=== PATIENT | female | born 1945 | race Caucasian/White ===

== ENCOUNTER 2020-05-28 10:03 | Outpatient (REF) | payer MEDICARE, SELFPAY ==
--- NOTE | 2020-05-28 10:09 | MM_ITS ---
EXAMINATION: BONE DENSITOMETRY CLINICAL INDICATION: Age-related osteoporosis without current pathological fracture. COMPARISON: Previous BD dated 09/13/2017 and baseline BD dated 08/04/2006. TECHNIQUE: Using a [employer] DXA System (software version: 13.1) manufactured by [employer], dual-energy x-ray absorptiometry was performed of the lumbar spine and left hip. The images are of good technical quality. Summary results are attached. FINDINGS: AP SPINE L1-L4: Current: BMD 0.777 g/cm2, Z-score -1.2, T-score -3.4, osteoporosis, 3.6% decrease from previous, 3.4% decrease from baseline (<5% change is not significant). Prior: BMD 0.806 g/cm2. Baseline: BMD 0.804 g/cm2. LEFT FEMUR, NECK: Current: BMD 0.621 g/cm2, Z-score -0.9, T-score -3.0, osteoporosis. Prior: BMD 0.662 g/cm2. Baseline: BMD 0.689 g/cm2. LEFT FEMUR, TOTAL: Current: BMD 0.702 g/cm2, Z-score -0.5, T-score -2.4, osteopenia, 1.7% increase from previous, 2.6% decrease from baseline (<5% change is not significant). Prior: BMD 0.690 g/cm2. Baseline: BMD 0.721 g/cm2. IDENTIFIED RISK FACTORS: Menopause, hysterectomy, bilateral oophorectomy, osteoporosis, height loss. HISTORY OF FRACTURE: None listed. MEDICATIONS: Calcium supplements or multivitamin, vitamin D, ERT/SERMS . MM/XR DEXA axial skeleton IMPRESSION: 1. DIAGNOSIS: Osteoporosis based on the lowest T-score value of -3.4 in the lumbar spine applying World Health Organization criteria. 2. 10-YEAR FRACTURE RISK PREDICTION, FRAX: Major osteoporotic fracture (clinical spine, forearm, hip or shoulder) 20.6%. Hip fracture 7.5%. 3. Treatment Recommendations: NOF guidelines recommend consideration for treatment in postmenopausal women and men age 50 and older presenting with the following: -A hip or vertebral (clinical or morphometric) fracture. -T-score less than or equal to -2.5 at the femoral neck or spine after appropriate evaluation to exclude secondary causes. -Low bone mass at the hip or spine and a 10-year fracture probability by FRAX of greater than or equal to 3% for hip fracture or greater than or equal to 20% for major osteoporotic fracture based on the [place] adapted WHO algorithm. 4. Other Recommendations: All treatment decisions require clinical judgment and consideration of individual patient factors, including patient preferences, comorbidities, previous drug use, risk factors not captured in the FRAX model (e.g. frailty, falls, vitamin D deficiency, increased bone turnover, interval significant decline in bone density) and possible under or overestimation of fracture risk by FRAX. Additional medical evaluation for secondary cause of low bone mineral density may be appropriate. FUTURE SCAN RECOMMENDATION: People with diagnosed cases of osteoporosis or at high risk for fracture should have regular bone mineral density tests. For patients eligible for Medicare, routine testing is allowed once every 2 years. The testing frequency can be increased to one year for patients who have rapidly progressing disease, those who are receiving or discontinuing medical therapy to restore bone mass, or have additional risk factors.
== END 2020-05-28 10:04 | disposition home or self-care (01) ==
LOC: HO.MAMMO 10:03
PROVIDERS: PCP Internal Medicine; Visit Provider Internal Medicine
DX: M81.0 Age-related osteoporosis without current pathological fracture (principal)
CPT/HCPCS: 77080

== ENCOUNTER 2020-10-01 10:18 | Outpatient (REF) | payer MEDICARE, SELFPAY ==
--- NOTE | ~2020-10-01 | MM_ITS ---
EXAMINATION: MM SCREENING DIGITAL BREAST TOMOSYNTHESIS, BILATERAL CLINICAL INFORMATION: Screening. Asymptomatic. The lifetime risk of breast cancer based on the Tyrer-Cuzick Model is 2.4%. COMPARISON: Mammography: June 18, 2019 and studies dating back to December 27, 2011 TECHNIQUE: Digital breast tomosynthesis is performed in both the craniocaudal and mediolateral oblique views along with computer-aided detection (CAD). Synthesized 2D images are generated from the tomosynthesis. FINDINGS: There are scattered areas of fibroglandular density (ACR BI-RADS breast composition Category b). There are no significant masses, abnormal calcifications, or other abnormalities. MM/MM tomosynthesis screening BI IMPRESSION: There are no significant changes from prior study. ASSESSMENT: BI-RADS 1: Negative RECOMMENDATION: Routine annual mammography screening. This patient's information was entered into a reminder system with a target due date for their next mammogram.
== END 2020-10-01 10:19 | disposition home or self-care (01) ==
LOC: HO.MAMMO 10:18
PROVIDERS: Visit Provider Internal Medicine
DX: Z12.31 Encounter for screening mammogram for malignant neoplasm of breast (principal)
CPT/HCPCS: 77063; 77067

== ENCOUNTER 2021-04-29 08:31 | Outpatient (REF) | payer MEDICARE, SELFPAY ==
[2021-04-29 11:32] LABS: MANUAL DIFF FLAG NO
[2021-04-29 11:41] LABS: Basophils Absolute Auto 0.1 X10*3/uL (0.0-0.2); Basophils Percent Auto 0.9 % (0-2); Eosinophils Absolute Auto 0.3 X10*3/uL (0.0-0.4); Eosinophils Percent Auto 4.7 % (0-4); Hematocrit 47.4 % (37.0-47.0); Hemoglobin 15.5 g/dl (12.0-16.0); Imm Gran Abs Auto 0.01 X10*3/uL (0.00-0.03); Imm Gran Pct Auto 0.2 % (0.0-0.4); Lymphocytes Absolute Auto 1.7 X10*3/uL (1.2-4.9); Lymphocytes Percent Auto 30.8 % (20-40); Mean Corpuscular HGB Conc 32.7 g/dl (31.0-35.0); Mean Corpuscular Volume 97.9 fL (80.0-98.0); Mean Platelet Volume 10.6 fL (9.4-12.3); Monocytes Absolute Auto 0.4 X10*3/uL (0.1-1.2); Monocytes Percent Auto 6.8 % (2-11); Neutrophils Absolute Auto 3.1 x10*3/uL (2.0-8.3); Neutrophils Percent Auto 56.6 % (45-73); Platelet Count 295 X10*3/uL (160-400); Red Blood Count 4.84 X10*6/uL (4.20-5.50); Red Cell Distribution Width 11.9 % (11.0-16.0); White Blood Count 5.5 X10*3/uL (4.8-10.8)
[2021-04-29 12:16] LABS: Alanine Aminotransferase 25 U/L (0-31); Albumin Level 4.4 g/dL (3.5-5.0); Alkaline Phosphatase 71 U/L (39-117); Anion Gap 12 (12-20); Aspartate Amino Transferase 23 U/L (5-31); Bilirubin Total 0.5 mg/dL (0.0-1.0); Blood Urea Nitrogen 11 mg/dL (9-16); Calcium 9.8 mg/dL (8.4-10.2); Carbon Dioxide 28 mmol/L (22-29); Chloride 105 mmol/L (96-108); Cholesterol 199 mg/dL; Estimated Glomerular Filt Rate > 60; Glucose Random 91 mg/dL (60-115); HDL Cholesterol 61 mg/dL; LDL Cholesterol Calculated 116 mg/dl; Potassium 4.2 mmol/L (3.3-5.1); Sodium 141 mmol/L (135-145); Total Protein 6.9 g/dL (6.5-8.0); Triglycerides 114 mg/dL
[2021-04-29 12:23] LABS: Free T4 (Free Thyroxine) 1.14 ng/dL (0.71-1.85); Thyroid Stimulating Hormone 1.42 uIU/mL (0.32-4.0); Vitamin D 25-OH Total 42.6 ng/mL (>30)
[2021-04-29 12:33] LABS: Folate 10.7 ng/mL (> or = 4.0); Vitamin B12 454 pg/mL (200-900)
== END 2021-04-29 08:32 | disposition home or self-care (01) ==
LOC: HO.HMGCLDS 08:31
PROVIDERS: PCP Internal Medicine; Visit Provider Internal Medicine
DX: M81.0 Age-related osteoporosis without current pathological fracture (principal); E78.00 Pure hypercholesterolemia, unspecified
CPT/HCPCS: 36415; 80053; 80061; 82306; 82607; 82746; 84439; 84443; 85025

== ENCOUNTER 2021-10-05 08:08 | Outpatient (REF) | payer MEDICARE, SELFPAY ==
--- NOTE | ~2021-10-05 | MM_ITS ---
EXAMINATION: MM SCREENING DIGITAL BREAST TOMOSYNTHESIS, BILATERAL CLINICAL INFORMATION: Screening. Asymptomatic. The lifetime risk of breast cancer based on the Tyrer-Cuzick Model is 2%. COMPARISON: Mammography: 10/01/2020, 06/18/2019, 06/14/2018, 06/07/2017 TECHNIQUE: Digital breast tomosynthesis is performed in both the craniocaudal and mediolateral oblique views along with computer-aided detection (CAD). Synthesized 2D images are generated from the tomosynthesis. FINDINGS: There are scattered areas of fibroglandular density (ACR BI-RADS breast composition Category b). There are no significant masses, abnormal calcifications, or other abnormalities. Parenchymal pattern is similar to prior studies is no developing density or interval architectural abnormality. There are scattered vascular and benign round and rim calcifications again seen. The axilla are unremarkable. Mild bilateral nipple retraction is a chronic finding. MM/MM tomosynthesis screening BI IMPRESSION: No significant changes from prior studies. ASSESSMENT: BI-RADS 2: Benign RECOMMENDATION: Routine annual mammography screening. This patient's information was entered into a reminder system with a target due date for their next mammogram.
== END 2021-10-05 08:09 | disposition home or self-care (01) ==
LOC: HO.MAMMO 08:08
PROVIDERS: PCP Internal Medicine; Visit Provider Internal Medicine
DX: Z12.31 Encounter for screening mammogram for malignant neoplasm of breast (principal)
CPT/HCPCS: 77063; 77067

== ENCOUNTER 2022-06-01 09:06 | Outpatient (REF) | payer MEDICARE, SELFPAY ==
--- NOTE | ~2022-06-01 | MM_ITS ---
EXAMINATION: BONE DENSITOMETRY CLINICAL INDICATION: Menopause. COMPARISON: Previous BD dated 05/28/2020 and baseline BD dated 08/04/2006. TECHNIQUE: Using a [employer] DXA System (software version: 13.1) manufactured by [employer], dual-energy x-ray absorptiometry was performed of the lumbar spine and left hip. The images are of good technical quality. Summary results are attached. FINDINGS: AP SPINE L1-L4: Current: BMD 0.724 g/cm2, Z-score -1.6, T-score -3.8, osteoporosis, 6.8% decrease from previous, 10.0% decrease from baseline (<5% change is not significant). Prior: BMD 0.777 g/cm2. Baseline: BMD 0.804 g/cm2. LEFT FEMUR, NECK: Current: BMD 0.587 g/cm2, Z-score -1.0, T-score -3.2, osteoporosis. Prior: BMD 0.621 g/cm2. Baseline: BMD 0.689 g/cm2. LEFT FEMUR, TOTAL: Current: BMD 0.647 g/cm2, Z-score -0.8, T-score -2.9, osteoporosis, 7.8% decrease from previous, 10.3% decrease from baseline (<5% change is not significant). Prior: BMD 0.702 g/cm2. Baseline: BMD 0.721 g/cm2. IDENTIFIED RISK FACTORS: Menopause, height loss, hysterectomy, bilateral oophorectomy, osteoporosis. HISTORY OF FRACTURE: None listed. MEDICATIONS: Calcium, vitamin D, ERT/SERMS. MM/XR DEXA axial skeleton IMPRESSION: 1. DIAGNOSIS: Osteoporosis based on the lowest T-score value of -3.8 in the lumbar spine applying World Health Organization criteria. 2. 10-YEAR FRACTURE RISK PREDICTION, FRAX: According to the guidelines, FRAX calculation should only be performed on patients in the osteopenia bone density category. Therefore, FRAX was not performed on this patient. 3. Treatment Recommendations: NOF guidelines recommend consideration for treatment in postmenopausal women and men age 50 and older presenting with the following: -A hip or vertebral (clinical or morphometric) fracture. -T-score less than or equal to -2.5 at the femoral neck or spine after appropriate evaluation to exclude secondary causes. -Low bone mass at the hip or spine and a 10-year fracture probability by FRAX of greater than or equal to 3% for hip fracture or greater than or equal to 20% for major osteoporotic fracture based on the [place] adapted WHO algorithm. 4. Other Recommendations: All treatment decisions require clinical judgment and consideration of individual patient factors, including patient preferences, comorbidities, previous drug use, risk factors not captured in the FRAX model (e.g. frailty, falls, vitamin D deficiency, increased bone turnover, interval significant decline in bone density) and possible under or overestimation of fracture risk by FRAX. Additional medical evaluation for secondary cause of low bone mineral density may be appropriate. FUTURE SCAN RECOMMENDATION: People with diagnosed cases of osteoporosis or at high risk for fracture should have regular bone mineral density tests. For patients eligible for Medicare, routine testing is allowed once every 2 years. The testing frequency can be increased to one year for patients who have rapidly progressing disease, those who are receiving or discontinuing medical therapy to restore bone mass, or have additional risk factors.
== END 2022-06-01 09:07 | disposition home or self-care (01) ==
LOC: HO.MAMMO 09:06
PROVIDERS: PCP Internal Medicine; Visit Provider Internal Medicine
DX: Z78.0 Asymptomatic menopausal state (principal); M81.0 Age-related osteoporosis without current pathological fracture; Z90.710 Acquired absence of both cervix and uterus; Z90.722 Acquired absence of ovaries, bilateral; Z79.810 Long term (current) use of selective estrogen receptor modulators (SERMs)
CPT/HCPCS: 77080

== ENCOUNTER 2022-10-21 07:16 | Outpatient (REF) | payer MEDICARE, SELFPAY ==
--- NOTE | ~2022-10-21 | MM_ITS ---
EXAMINATION: MM SCREENING DIGITAL BREAST TOMOSYNTHESIS, BILATERAL CLINICAL INFORMATION: Screening. Asymptomatic. The lifetime risk of breast cancer based on the Tyrer-Cuzick Model is 2%. COMPARISON: Multiple prior mammography exams including most recent 10/05/2021. TECHNIQUE: Digital breast tomosynthesis is performed in both the craniocaudal and mediolateral oblique views along with computer-aided detection (CAD). Synthesized 2D images are generated from the tomosynthesis. FINDINGS: There are scattered areas of fibroglandular density (ACR BI-RADS breast composition Category b). Left breast parenchymal pattern is similar to prior exams and there is no developing density or interval architectural abnormality or abnormal calcifications. There are bilateral scattered benign punctate round and vascular calcifications. The axilla and skin contours are unremarkable. Right breast has subtle focal increased parenchymal attenuation mid 8:00 position. There are some scattered round calcifications in this vicinity. Patient will be recalled to further characterize. MM/MM tomosynthesis screening BI IMPRESSION: Right: -Subtle focal increased parenchymal attenuation mid 8:00. Scattered round calcifications in this vicinity. Left: -No mammographic evidence of malignancy. ASSESSMENT: BI-RADS 0: Incomplete - Need Additional Imaging Evaluation RECOMMENDATION: 1. Additional views right breast (spot magnification CC, spot magnification ML). 2. Targeted ultrasound if warranted after review of the additional views. 3. Radiology department staff will contact the patient for additional imaging. This patient's information was entered into a reminder system with a target due date for their next mammogram.
== END 2022-10-21 07:17 | disposition home or self-care (01) ==
LOC: HO.MAMMO 07:16
PROVIDERS: PCP Internal Medicine; Visit Provider Internal Medicine
DX: Z12.31 Encounter for screening mammogram for malignant neoplasm of breast (principal)
CPT/HCPCS: 77063; 77067

== ENCOUNTER 2022-11-08 12:44 | Outpatient (REF) | payer MEDICARE, SELFPAY ==
--- NOTE | ~2022-11-08 | MM_ITS ---
EXAMINATION: MM DIAGNOSTIC DIGITAL MAMMOGRAPHY, RIGHT CLINICAL INFORMATION: Recall from screening for subtle focal increased parenchymal attenuation with some scattered round calcifications mid 8:00. COMPARISON: Multiple prior mammography exams including most recent 10/21/2022. TECHNIQUE: Digital mammography is performed in the following views: Magnification right CC, magnification ML. FINDINGS: There are scattered areas of fibroglandular density (ACR BI-RADS breast composition Category b). The additional views show no parenchymal prominent similar to prior exams. There is no developing density or increased attenuation or interval architectural abnormality. There are a few scattered benign round, rim, and vascular calcifications. No significant change from prior exams. Results are discussed with the patient at time of visit. MM/MM added views RT IMPRESSION: No mammographic evidence of malignancy. ASSESSMENT: BI-RADS 2: Benign RECOMMENDATION: Routine annual mammography screening. This patient's information was entered into a reminder system with a target due date for their next mammogram.
== END 2022-11-08 12:45 | disposition home or self-care (01) ==
LOC: HO.MAMMO 12:44
PROVIDERS: PCP Internal Medicine; Visit Provider Internal Medicine
DX: R92.1 Mammographic calcification found on diagnostic imaging of breast (principal)
CPT/HCPCS: 77065

== ENCOUNTER 2022-11-15 08:40 | Outpatient (REF) | payer MEDICARE, SELFPAY | END 2022-11-15 08:41 | disposition home or self-care (01) | LOC: HO.HMGCLDS 08:40 | PROVIDERS: PCP Internal Medicine; Visit Provider Internal Medicine | DX: E78.00 Pure hypercholesterolemia, unspecified (principal); M81.0 Age-related osteoporosis without current pathological fracture | CPT/HCPCS: 36415; 80053; 80061; 81001; 82306; 82607; 82746; 84439; 84443; 85025 ==

== ENCOUNTER 2023-02-28 10:42 | Outpatient (AMB) | payer MEDICARE, SELFPAY ==
[2023-02-28 10:49] VITALS: BP 148/98; PULSE 89; O2SAT 97; BMI 22.6
--- NOTE | 2023-02-28 10:50 | A.OFFPC_ITS ---
Vital Signs 02/28/23 10:49 Height 4 ft 11 in Weight 112 lb BMI 22.6 BP 148/98 H Blood Pressure Location Lt brachial Position Sitting Pulse 89 Pulse Source Pulse Oximeter Temp Source Skin Pulse Oximetry (%) 97 Oxygen Delivery Method Room Air Intake Visit Reasons: Hypertension Allergies atorvastatin [From Lipitor] Adverse Reaction (Unknown, Verified 02/28/23 10:50) Unknown ezetimibe [From Zetia] Adverse Reaction (Unknown, Verified 02/28/23 10:50) Unknown pravastatin Adverse Reaction (Unknown, Verified 02/28/23 10:50) Unknown Tobacco use date assessed: 02/28/23 Fall risk assessment: No Falls in past year Last assessed Fall Risk: 02/28/23 Dental Screening Dental Screen Date: 02/28/23 Did you have a dental visit in the last 12 months?: Yes Did you have a dental problem in the last 6 months where you did not have access to dental care?: No Was dental information given to patient?: Patient has dentist HPI Hypertension HPI Details 77-year-old female with a history of hyp ertension GERD hypercholesterolemia osteoporosis last seen in November 2022. Concern about the blood pressure and was advised to monitor at home. Patient's colonoscopy is due this year mammograms up-to-date bone density is up-to-date. BP at home is good. continue with med . dental procedurepulled molar on amox right now- had a bone graft. [facility] Medical History (Updated 11/18/22 @ 08:44 by Castillo Zambrano MD) Screening for colon cancer Screening for diabetes mellitus Osteoporosis Tubular adenoma of colon Anxiety GERD (gastroesophageal reflux disease) Ovarian cancer in remission Pure hypercholesterolemia Surgical History History of tonsillectomy History of tubal ligation History of appendectomy History of total abdominal hysterectomy and bilateral salpingo-oophorectomy Family History Father Colon cancer, Onset Age: 63 Mother Hypertension [facility] Alcohol intake: never Patient Tobacco Use Status: Former Tobacco user Tobacco use type: Cigarette e-Cigarette/Vaping Use: Never Used Second Hand Smoke Exposure: No service: No Current occupational status: retired Cognitive needs: No Hearing needs: No Vision needs: Yes Questionnaire Thrive Questionnaire Date Thrive assessed: 11/18/22 AUDIT C Alcohol Use Questionnaire (AUDIT-C) 1. How often do you have a drink containing alcohol?: Never 2. How many drinks containing alcohol do you have on a typical day when you are drinking?: 1 or 2 3. How often do you have six or more drinks on one occasion?: Never Total Score: 0 PILY-7 AMB Questionnaire PILY-7 Date PILY - 7 assessed: 11/18/22 Source: Developed by Drs. Jenaro Casanova, Florence Pringle, Ramírez Young and colleagues, with an educational kary from [employer]. Physical exam (Primary Care) Vital Signs: Last Vital Signs Pulse 89 02/28/23 10:49 BP 148/98 H 02/28/23 10:49 Pulse Ox 97 02/28/23 10:49 Oxygen Delivery Method Room Air 02/28/23 10:49 BMI result Body Mass Index 22.6 Tobacco/Smoking Status: Tobacco use Status Tobacco use date assessed 02/28/23 02/28/23 10:57 Patient Tobacco Use Status Former Tobacco user 02/28/23 10:50 Tobacco use type Cigarette 02/28/23 10:50 e-Cigarette/Vaping Use Never Used 02/28/23 10:50 Thrive Assessment: Date of Thrive Assessment Date Thrive assessed 11/18/22 02/28/23 10:50 Const General: alert; No acute distress Eyes Conjunctivae: conjunctivae normal Resp Auscultation: clear to auscultation bilaterally Cardio Rate: regular rate Rhythm: regular rhythm GI Inspection: Yes normal to inspection Extrem General: Yes normal to inspection and No edema Assessment and Plan Assessment & Plan (1) Pure hypercholesterolemia: Code(s): E78.00 - Pure hypercholesterolemia, unspecified Plan: Avoid fried foods, chicken skin, eggs, butter margarine, pastries and meat. Be it pork or beef they have a lot of cholesterol LDL goal of less than 130 and triglyceride of less than 150. Patient is on simvastatin 20 mg at bedtime (2) Osteoporosis: Code(s): M81.0 - Age-related osteoporosis without current pathological fracture Qualifiers: Osteoporosis type: age-related Presence of current pathological fracture: without current pathological fracture Qualified Code(s): M81.0 - Age- related osteoporosis without current pathological fracture Plan: Continue with her loxapine and up-to-date with bone density (3) GERD (gastroesophageal reflux disease): Code(s): K21.9 - Gastro-esophageal reflux disease without esophagitis Plan: Avoid the foods that causes that usually spicy foods, tomato products, juices, coffee, soda and foods that your sensitive to. After eating do not lie down, allow 3-4 hours before in lie down. And keep the head of bed above 30 degrees to avoid the acid from going up. On omeprazole (4) Generalized anxiety disorder: Code(s): F41.1 - Generalized anxiety disorder Plan: Continue with alprazolam as needed (5) Hypertension: Code(s): I10 - Essential (primary) hypertension Plan: Continue with blood pressure medication. Decrease salt intake and exercise Coding Level of Care Code Est Pt Level 4 (50108) Diagnoses Pure hypercholesterolemia E78.00 Age-related osteoporosis without current pathological fracture M81.0 Osteoporosis type: age-related Presence of current pathological fracture: without current pathological fracture GERD (gastroesophageal reflux disease) K21.9 Generalized anxiety disorder F41.1 Hypertension I10
== END 2023-02-28 12:20 | disposition home or self-care (01) ==
PROVIDERS: PCP Internal Medicine; Visit Provider Internal Medicine
DX: E78.00 Pure hypercholesterolemia, unspecified (principal); M81.0 Age-related osteoporosis without current pathological fracture; K21.9 Gastro-esophageal reflux disease without esophagitis; F41.1 Generalized anxiety disorder; I10 Essential (primary) hypertension
CPT/HCPCS: 99214

== ENCOUNTER 2023-08-08 16:25 | Outpatient (AMB) | payer MEDICARE, SELFPAY ==
--- NOTE | 2023-08-08 16:30 | A.OFFPC_ITS ---
Vital Signs 08/08/23 16:32 Height 4 ft 11 in Weight 113 lb 0.2 oz BMI 22.8 BP 168/90 H Blood Pressure Location Lt brachial Position Sitting Pulse 77 Pulse Source Pulse Oximeter Pulse Oximetry (%) 96 Oxygen Delivery Method Room Air Intake Visit Reasons: 6 month checkup Ambulatory Technologist Required: No Allergies atorvastatin [From Lipitor] Adverse Reaction (Unknown, Verified 08/08/23 16:30) Unknown ezetimibe [From Zetia] Adverse Reaction (Unknown, Verified 08/08/23 16:30) Unknown pravastatin Adverse Reaction (Unknown, Verified 08/08/23 16:30) Unknown Tobacco use date assessed: 08/08/23 Fall risk assessment: No Falls in past year Last assessed Fall Risk: 08/08/23 HPI 6 month checkup HPI Details 78-year-old female with a history of ost eoporosis hypercholesterolemia GERD generalized anxiety disorder and hypertension last seen in February 2023. Patient is due for colonoscopy this year mammograms up-to-date bone density is up-to-date BP good at home REPLACED BY [facility] Medical History (Updated 08/08/23 @ 16:44 by Castillo Zambrano MD) Screening for colon cancer Screening for diabetes mellitus Osteoporosis Tubular adenoma of colon Anxiety GERD (gastroesophageal reflux disease) Ovarian cancer in remission Pure hypercholesterolemia Surgical History History of tonsillectomy History of tubal ligation History of appendectomy History of total abdominal hysterectomy and bilateral salpingo-oophorectomy Family History Father Colon cancer, Onset Age: 63 Mother Hypertension Social History Housing: Condominium Alcohol intake: never Patient Tobacco Use Status: Former Tobacco user Tobacco use type: Cigarette e-Cigarette/Vaping Use: Never Used Second Hand Smoke Exposure: No service: No Current occupational status: retired Cognitive needs: No Hearing needs: No Vision needs: Yes Questionnaire Thrive Questionnaire Date Thrive assessed: 11/18/22 AUDIT C Alcohol Use Questionnaire (AUDIT-C) 1. How often do you have a drink containing alcohol?: Never 2. How many drinks containing alcohol do you have on a typical day when you are drinking?: 1 or 2 3. How often do you have six or more drinks on one occasion?: Never Total Score: 0 PILY-7 AMB Questionnaire PILY-7 Date PILY - 7 assessed: 11/18/22 Source: Developed by Drs. Jenaro Casanova, Florence Pringle, Ramírez Young and colleagues, with an educational kary from [employer]. Physical exam (Primary Care) Vital Signs: Last Vital Signs Pulse 77 08/08/23 16:32 BP 168/90 H 08/08/23 16:32 Pulse Ox 96 08/08/23 16:32 Oxygen Delivery Method Room Air 08/08/23 16:32 BMI result Body Mass Index 22.8 Tobacco/Smoking Status: Tobacco use Status Tobacco use date assessed 08/08/23 08/08/23 16:37 Patient Tobacco Use Status Former Tobacco user 08/08/23 16:37 Tobacco use type Cigarette 08/08/23 16:37 e-Cigarette/Vaping Use Never Used 08/08/23 16:37 Thrive Assessment: Date of Thrive Assessment Date Thrive assessed 11/18/22 08/08/23 16:37 Const General: alert; No acute distress Eyes Conjunctivae: conjunctivae normal Resp Auscultation: clear to auscultation bilaterally Cardio Rate: regular rate Rhythm: regular rhythm GI Inspection: Yes normal to inspection Extrem General: Yes normal to inspection and No edema Assessment and Plan Assessment & Plan (1) Pure hypercholesterolemia: Code(s): E78.00 - Pure hypercholesterolemia, unspecified Plan: Avoid fried foods, chicken skin, eggs, butter margarine, pastries and meat. Be it pork or beef they have a lot of cholesterol LDL goal of less than 130 and triglyceride of less than 150. On simvastatin 20 mg November 2022 last blood work (2) GERD (gastroesophageal reflux disease): Code(s): K21.9 - Gastro-esophageal reflux disease without esophagitis Plan: Avoid the foods that causes that usually spicy foods, tomato products, juices, coffee, soda and foods that your sensitive to. After eating do not lie down, allow 3-4 hours before in lie down. And keep the head of bed above 30 degrees to avoid the acid from going up. (3) Hypertension: Code(s): I10 - Essential (primary) hypertension Plan: Continue with blood pressure medication. Decrease salt intake and exercise patient takes hydrochlorothiazide 12.5 mg once a day (4) Generalized anxiety disorder: Code(s): F41.1 - Generalized anxiety disorder Plan: Continue with present medication. (5) Screening for colon cancer: Code(s): Z12.11 - Encounter for screening for malignant neoplasm of colon Orders: Orders Thyroid Stimulating Hormone 3 Months I10 - Essential (primary) hypertension Comprehensive Met. Panel 3 Months I10 - Essential (primary) hypertension Vitamin B12 and Folate 3 Months I10 - Essential (primary) hypertension Vitamin D 25-OH Total 3 Months I10 - Essential (primary) hypertension Complete Blood Count Auto Diff 3 Months I10 - Essential (primary) hypertension Free T4 (Free Thyroxine) 3 Months I10 - Essential (primary) hypertension Lipid Panel 3 Months E78.00 - Pure hypercholesterolemia, unspecified, I10 - Essential (primary) hypertension Referrals Gastroenterology Referral Z12.11 - Encounter for screening for malignant neoplasm of colon Coding Level of Care Code Est Pt Level 4 (61755) Diagnoses Pure hypercholesterolemia E78.00 GERD (gastroesophageal reflux disease) K21.9 Hypertension I10 Generalized anxiety disorder F41.1 Screening for colon cancer Z12.11
[2023-08-08 16:32] VITALS: BP 168/90; PULSE 77; O2SAT 96; BMI 22.8
== END 2023-08-08 16:57 | disposition home or self-care (01) ==
PROVIDERS: PCP Internal Medicine; Visit Provider Internal Medicine
DX: E78.00 Pure hypercholesterolemia, unspecified (principal); K21.9 Gastro-esophageal reflux disease without esophagitis; I10 Essential (primary) hypertension; F41.1 Generalized anxiety disorder; Z12.11 Encounter for screening for malignant neoplasm of colon
CPT/HCPCS: 99214

== ENCOUNTER 2023-10-27 07:11 | Outpatient (REF) | payer MEDICARE, SELFPAY | END 2023-10-27 07:12 | disposition home or self-care (01) | LOC: HO.MAMMO 07:11 | PROVIDERS: PCP Internal Medicine; Visit Provider Internal Medicine | DX: Z12.31 Encounter for screening mammogram for malignant neoplasm of breast (principal) | CPT/HCPCS: 77063; 77067 ==

== ENCOUNTER → 2023-10-27 07:30 | Outpatient (BNV) | payer MEDICARE, SELFPAY | PROVIDERS: PCP Internal Medicine; Visit Provider Radiology Diagnostic Radiology | DX: Z12.31 Encounter for screening mammogram for malignant neoplasm of breast (principal) | CPT/HCPCS: 77063; 77067 ==

== ENCOUNTER 2023-11-07 06:40 | Outpatient (REF) | payer MEDICARE, SELFPAY ==
[2023-11-07 12:05] LABS: MANUAL DIFF FLAG NO
[2023-11-07 12:08] LABS: Basophils Absolute Auto 0.1 X10*3/uL (0.0-0.2); Basophils Percent Auto 0.8 % (0-2); Eosinophils Absolute Auto 0.3 X10*3/uL (0.0-0.4); Eosinophils Percent Auto 4.4 % (0-4); Hematocrit 43.1 % (37.0-47.0); Hemoglobin 14.7 g/dl (12.0-16.0); Imm Gran Abs Auto 0.02 X10*3/uL (0.00-0.03); Imm Gran Pct Auto 0.3 % (0.0-0.4); Lymphocytes Absolute Auto 2.2 X10*3/uL (1.2-4.9); Lymphocytes Percent Auto 33.3 % (20-40); Mean Corpuscular HGB Conc 34.1 g/dl (31.0-35.0); Mean Corpuscular Hemoglobin 32.5 pg (27.0-33.0); Mean Corpuscular Volume 95.1 fL (80.0-98.0); Mean Platelet Volume 10.1 fL (9.4-12.3); Monocytes Absolute Auto 0.5 X10*3/uL (0.1-1.2); Monocytes Percent Auto 7.7 % (2-11); Neutrophils Absolute Auto 3.6 x10*3/uL (2.0-8.3); Neutrophils Percent Auto 53.5 % (45-73); Platelet Count 326 X10*3/uL (160-400); Red Blood Count 4.53 X10*6/uL (4.20-5.50); Red Cell Distribution Width 12.5 % (11.0-16.0); White Blood Count 6.7 X10*3/uL (4.8-10.8)
[2023-11-07 13:09] LABS: Folate 9.7 ng/mL (> or = 4.0); Vitamin B12 515 pg/mL (200-900)
[2023-11-07 13:10] LABS: Alanine Aminotransferase 25 U/L (0-31); Albumin Level 4.2 g/dL (3.5-5.0); Alkaline Phosphatase 65 U/L (39-117); Anion Gap 14 (12-20); Aspartate Amino Transferase 28 U/L (5-31); Bilirubin Total 0.6 mg/dL (0.0-1.0); Blood Urea Nitrogen 17 mg/dL (9-16); Calcium 10.1 mg/dL (8.4-10.2); Carbon Dioxide 26 mmol/L (22-29); Chloride 105 mmol/L (96-108); Cholesterol 198 mg/dL (<200); Estimated Glomerular Filt Rate > 60; Glucose Random 95 mg/dL (60-115); HDL Cholesterol 60 mg/dL (>40); LDL Cholesterol Calculated 116 mg/dL (<100); Sodium 141 mmol/L (135-145); Triglycerides 113 mg/dL (<150)
[2023-11-07 13:40] LABS: Free T4 (Free Thyroxine) 0.97 ng/dL (0.71-1.85); Thyroid Stimulating Hormone 1.88 uIU/mL (0.32-4.0); Vitamin D 25-OH Total 41.6 ng/mL (>30)
== END 2023-11-07 06:41 | disposition home or self-care (01) ==
LOC: HO.HMGCLDS 06:40
PROVIDERS: PCP Internal Medicine; Visit Provider Internal Medicine
DX: I10 Essential (primary) hypertension (principal); E78.00 Pure hypercholesterolemia, unspecified
CPT/HCPCS: 36415; 80053; 80061; 82306; 82607; 82746; 84439; 84443; 85025

== ENCOUNTER 2023-11-09 13:25 | Outpatient (AMB) | payer MEDICARE, SELFPAY ==
[2023-11-09 13:31] VITALS: BP 160/100; PULSE 57; O2SAT 98; BMI 22.4
--- NOTE | 2023-11-09 13:31 | MHC.PC.OV ---
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 Required: No Allergies atorvastatin [From Lipitor] Adverse Reaction (Unknown, Verified 11/09/23 13:31) Unknown ezetimibe [From Zetia] Adverse Reaction (Unknown, Verified 11/09/23 13:31) Unknown pravastatin Adverse Reaction (Unknown, Verified 11/09/23 13:31) Unknown Tobacco use date assessed: 08/08/23 Fall risk assessment: No Falls in past year Last assessed Fall Risk: 11/09/23 Dental Screening Dental Screen Date: 11/09/23 Did you have a dental visit in the last 12 months?: Yes Did you have a dental problem in the last 6 months where you did not have access to dental care?: No Was dental information given to patient?: Patient has dentist HPI 3mof\u HPI Details 78-year-old female with hypercholesterolemia GERD hypertension generalized anxiety disorder last seen in 08/03/2023. Patient's colonoscopy is due for this year mammogram is due also and bone density up-to-date. Patient did see gastroenterology 11/03/2023 and will be scheduled for colonoscopy in 11/29/2023. BP at home 135/70 and so will not add med [facility] Medical History (Updated 08/08/23 @ 16:44 by Castillo Zambrano MD) Screening for colon cancer Screening for diabetes mellitus Osteoporosis Tubular adenoma of colon Anxiety GERD (gastroesophageal reflux disease) Ovarian cancer in remission Pure hypercholesterolemia Surgical History History of tonsillectomy History of tubal ligation History of appendectomy History of total abdominal hysterectomy and bilateral salpingo-oophorectomy Family History Father Colon cancer, Onset Age: 63 Mother Hypertension Social History Housing: Condominium Alcohol intake: never Patient Tobacco Use Status: Former Tobacco user Tobacco use type: Cigarette e-Cigarette/Vaping Use: Never Used Second Hand Smoke Exposure: No service: No Current occupational status: retired Cognitive needs: No Hearing needs: No Vision needs: Yes Questionnaire PHQ-9 Over the last 2 weeks, how often have you been bothered by any of the following problems? 1. Little interest or pleasure in doing things: not at all 2. Feeling down, depressed, or hopeless: not at all 3. Trouble falling or staying asleep, or sleeping too much: not at all 4. Feeling tired or having little energy: not at all 5. Poor appetite or overeating: not at all 6. Feeling bad about yourself - or that you are a failure or have let yourself or your family down: not at all 7. Trouble concentrating on things, such as reading the newspaper or watching television: not at all 8. Moving or speaking so slowly that other people could have noticed. Or the opposite - being so fidgety or restless that you have been moving around a lot more than usual: not at all 9. Thoughts that you would be better off or of hurting yourself in some way: not at all Total score: 0 Depression Screening Interpretation: Negative Depression Screening Done: Yes 91537 - PHQ-9 Billing: Yes Source: Developed by Drs. Jenaro Casanova, Florence Pringle, Ramírez Young and colleagues, with an educational kary from [employer]. Thrive Questionnaire Date Thrive assessed: 11/09/23 I am a: Patient What is your living situation today?: I have a steady place to live Within the past 12 months, did the food you bought not last and you didn't have the money to get more?: Never true Within the past 12 months, did you worry whether your food would run out before you got money to buy more?: Never true Do you have trouble paying for medicines?: No Do you have trouble getting transportation to medical appointments?: No Do you have trouble paying your heating and electricity bill?: No Do you have trouble taking care of your child, family member or friend?: No Do you have trouble with day-to-day activities such as bathing, preparing meals, shopping, managing finances, etc.?: No Are you currently unemployed and looking for a job?: No Are you interested in more education?: No Please select the resources that you would like help with: None Currently or been in a relationship where the following occur: no concerns reported THRIVE Score: 0 AUDIT C Alcohol Use Questionnaire (AUDIT-C) 1. How often do you have a drink containing alcohol?: Never 2. How many drinks containing alcohol do you have on a typical day when you are drinking?: 1 or 2 3. How often do you have six or more drinks on one occasion?: Never Total Score: 0 PILY-7 AMB Questionnaire PILY-7 Date PILY - 7 assessed: 11/09/23 Feeling nervous, anxious, or on edge: 0 = Not at all Not being able to stop or control worryin = Not at all Worrying too much about different things: 0 = Not at all Trouble relaxin = Not at all Being so restless that it is hard to sit still: 0 = Not at all Becoming easily annoyed or irritable: 0 = Not at all Feeling afraid as if something awful might happen: 0 = Not at all Total PILY-7 score (0-4 normal; 5-9 mild; 10-14 moderate; 15-21 severe): 0 Source: Developed by Drs. Jenaro Casanova, Florence Pringle, Ramírez Young and colleagues, with an educational kary from [employer]. Physical exam (Primary Care) Vital Signs: Last Vital Signs Pulse 57 11/09/23 13:31 BP 160/100 H 11/09/23 13:31 Pulse Ox 98 11/09/23 13:31 Oxygen Delivery Method Room Air 11/09/23 13:31 BMI result Body Mass Index 22.4 Tobacco/Smoking Status: Tobacco use Status Tobacco use date assessed 08/08/23 11/09/23 13:32 Patient Tobacco Use Status Former Tobacco user 11/09/23 13:32 Tobacco use type Cigarette 11/09/23 13:32 e-Cigarette/Vaping Use Never Used 11/09/23 13:32 PHQ-9: PHQ-9 Score PHQ-9: Total score 0 11/09/23 13:39 Depression Screening Interpretation: Negative Thrive Assessment: Date of Thrive Assessment Date Thrive assessed 11/09/23 11/09/23 13:32 Currently or been in a relationship where the following occur: no concerns reported Const General: alert; No acute distress Eyes Conjunctivae: conjunctivae normal Resp Auscultation: clear to auscultation bilaterally Cardio Rate: regular rate Rhythm: regular rhythm GI Inspection: Yes normal to inspection Extrem General: Yes normal to inspection and No edema Assessment and Plan Assessment & Plan (1) Pure hypercholesterolemia: Code(s): E78.00 - Pure hypercholesterolemia, unspecified Plan: Avoid fried foods, chicken skin, eggs, butter margarine, pastries and meat. Be it pork or beef they have a lot of cholesterol LDL goal of less than 130 and triglyceride of less than 150. On simvastatin 20 mg at bedtime (2) GERD (gastroesophageal reflux disease): Code(s): K21.9 - Gastro-esophageal reflux disease without esophagitis Plan: Avoid the foods that causes that usually spicy foods, tomato products, juices, coffee, soda and foods that your sensitive to. After eating do not lie down, allow 3-4 hours before in lie down. And keep the head of bed above 30 degrees to avoid the acid from going up. On omeprazole (3) Hypertension: Code(s): I10 - Essential (primary) hypertension Plan: Continue with blood pressure medication. Decrease salt intake and exercise patient is presently on hydrochlorothiazide 12.5 mg once a day. Patient has white coat syndrome blood pressure at home has been controlled. (4) Screening for colon cancer: Code(s): Z12.11 - Encounter for screening for malignant neoplasm of colon Plan: Colon cancer screening scheduled for November. Medications: New omeprazole 20 mg PO DAILY 90 caps 2RF K21.9 - Gastro-esophageal reflux disease without esophagitis Coding Level of Care Code Est Pt Level 4 (09610) Diagnoses Pure hypercholesterolemia E78.00 GERD (gastroesophageal reflux disease) K21.9 Hypertension I10 Screening for colon cancer Z12.11
== END 2023-11-09 14:24 | disposition home or self-care (01) ==
PROVIDERS: PCP Internal Medicine; Visit Provider Internal Medicine
DX: E78.00 Pure hypercholesterolemia, unspecified (principal); K21.9 Gastro-esophageal reflux disease without esophagitis; I10 Essential (primary) hypertension; Z12.11 Encounter for screening for malignant neoplasm of colon
CPT/HCPCS: 99214

== ENCOUNTER 2023-11-29 06:14 | Day surgery (SDC) | payer MEDICARE, SELFPAY ==
[2023-11-28 06:57] VITALS: BMI 22.4
--- NOTE | 2023-11-28 11:53 | HO.ANESPROP2 ---
Documented by User: Maria Esther Alicea NP 11/28/23 11:54 HPI - Anesthesia Eval Consult details Narrative: 78yo F for Colonoscopy PMFSH Active Problems Active Problems: All Active Problems COVID-19 virus infection (Acute) Hypertension (Acute) Post-menopausal (Acute) Pigmented nevus (Acute) Rosacea (Acute) Generalized anxiety disorder (Acute) Adult general medical exam (Acute) Elevated blood pressure reading (Acute) Screening for colon cancer (Acute) GERD (gastroesophageal reflux disease) (Acute) Osteoporosis (Acute) Ovarian cancer in remission (Acute) Pure hypercholesterolemia (Acute) Past Medical History Medical History Screening for colon cancer Screening for diabetes mellitus Osteoporosis Tubular adenoma of colon Anxiety GERD (gastroesophageal reflux disease) Ovarian cancer in remission Pure hypercholesterolemia Family History Family History Father Colon cancer, Onset Age: 63 Mother Hypertension Surgical History Surgical History H/O colonoscopy History of tonsillectomy History of tubal ligation History of appendectomy History of total abdominal hysterectomy and bilateral salpingo-oophorectomy Social History Social History Housing: Condominium Alcohol intake: never Patient Tobacco Use Status: Former Tobacco user Tobacco use type: Cigarette e-Cigarette/Vaping Use: Never Used Second Hand Smoke Exposure: No Use of substances other than those prescribed or required for medical reasons: No Are you DNR?: No Advance Directives: No Advance Directives Information Provided: Yes service: No Current occupational status: retired Cognitive needs: No Hearing needs: No Vision needs: Yes Meds Allergies Allergy/AdvReac Type Severity Reaction Status Date / Time atorvastatin [From Lipitor] AdvReac Unknown Unknown Verified 11/29/23 06:27 ezetimibe [From Zetia] AdvReac Unknown Unknown Verified 11/29/23 06:27 pravastatin AdvReac Unknown Unknown Verified 11/29/23 06:27 Home Medications ?Medication ?Instructions ?Recorded ?Confirmed ?Last Taken ?Type calcium carbonate 500 mg-vitamin 1 tab PO DAILY 11/28/23 11/28/23 Unknown History D3 10 mcg (400 unit) chewable tablet (Calcium 500 + D) cholecalciferol (vitamin D3) 25 25 mcg PO DAILY 11/28/23 11/28/23 Unknown History mcg (1,000 unit) capsule (Vitamin D3) Exam Height,Weight and Vital Signs: Height 4 ft 11 in Weight 50.349 kg Pertinent Lab Results Pertinent Lab Results: Laboratory Tests 11/07/23 07:01 WBC 6.7 Hgb 14.7 Hct 43.1 Plt Count 326 Sodium 141 Potassium 4.0 Chloride 105 Carbon Dioxide 26 BUN 17 H Creatinine 0.87 Assessment and Plan Assessment Anesthesia Assessment: Chart Reviewed Documented by User: Corby Otra MD 11/29/23 07:58 [facility] Past Medical History Medical History Screening for colon cancer Screening for diabetes mellitus Osteoporosis Tubular adenoma of colon Anxiety GERD (gastroesophageal reflux disease) Ovarian cancer in remission Pure hypercholesterolemia Family History Family History Father Colon cancer, Onset Age: 63 Mother Hypertension Family history of problems with anesthesia: No Surgical History Surgical History H/O colonoscopy History of tonsillectomy History of tubal ligation History of appendectomy History of total abdominal hysterectomy and bilateral salpingo-oophorectomy Social History Social History Housing: Condominium Alcohol intake: never Patient Tobacco Use Status: Former Tobacco user Tobacco use type: Cigarette e-Cigarette/Vaping Use: Never Used Second Hand Smoke Exposure: No Use of substances other than those prescribed or required for medical reasons: No Are you DNR?: No Advance Directives: No Advance Directives Information Provided: Yes service: No Current occupational status: retired Cognitive needs: No Hearing needs: No Vision needs: Yes Meds Allergies Allergy/AdvReac Type Severity Reaction Status Date / Time atorvastatin [From Lipitor] AdvReac Unknown Unknown Verified 11/29/23 06:27 ezetimibe [From Zetia] AdvReac Unknown Unknown Verified 11/29/23 06:27 pravastatin AdvReac Unknown Unknown Verified 11/29/23 06:27 Home Medications ?Medication ?Instructions ?Recorded ?Confirmed ?Last Taken ?Type calcium carbonate 500 mg-vitamin 1 tab PO DAILY 11/28/23 11/28/23 Unknown History D3 10 mcg (400 unit) chewable tablet (Calcium 500 + D) cholecalciferol (vitamin D3) 25 25 mcg PO DAILY 11/28/23 11/28/23 Unknown History mcg (1,000 unit) capsule (Vitamin D3) Exam Airway Mallampati Class: III TM Dist: >3cm Neck ROM: Full Loose/Missing/Broken Teeth: Yes Assessment and Plan Assessment Anesthesia Assessment: Anesthesia Plan Discussed Final Anesthetic Review Family History of Problems with Anesthesia: No NPO: Yes ASA Class: III Final Preanesthetic Review: No Changes in Pt Med Stat, Meds/Allgs Chart Reviewed, Consent Obtained/Reviewed and Anes Risks/Benef Reviewed Patient Risk: Intermediate Procedure Risk: Low Anesthetic Plan Anesthetic Plan: MAC: Disposition: Standard PACU
[2023-11-29 06:30] VITALS: BMI 22.4
[2023-11-29] MEDS: Sodium Phosphate,Mono-Dibasic 133 ML ENEMA PR (06:36)
[2023-11-29 06:40] VITALS: BP 184/101; PULSE 69; RESP 16; TEMP 36.3; O2SAT 99
--- NOTE | 2023-11-29 06:41 | PC.NURSE ---
pt reports completed 100% of prep. clear liquids all day yesterday, no solid food. prep results watery brown. Dr. Lawrence notified, fleets enema pr x1 given by this rn, pt tolerated well. clear results s/p fleets enema pr
[2023-11-29] MEDS: Lactated Ringers 1,000 ML 100 ML IVCONT (07:04)
--- NOTE | 2023-11-29 07:37 | MHC.SHP ---
Pre-Procedural Eval Section A - 24 Hr Update-Section A only Date of Service: 11/29/23 Section B - Complete if H&P > 30 days Chief Complaint: screening Details of Present Illness: see H&P no changes Relevant Family History (Specify if Yes): No Relevant Social History: None Present Medications: see Short Stay Collaborative assessment Medical History: No relevant PMH History of Previous Operations: No relevant previous surgery Allergies: Allergies Allergy/AdvReac Type Severity Reaction Status Date / Time atorvastatin [From Lipitor] AdvReac Unknown Unknown Verified 11/29/23 06:27 ezetimibe [From Zetia] AdvReac Unknown Unknown Verified 11/29/23 06:27 pravastatin AdvReac Unknown Unknown Verified 11/29/23 06:27 Review of Systems Sugical H&P ROS: Negative: Constitution, Cardiovascular, Respiratory, Neurological, Psychiatric, Hem-Onc, Allergic/Immunologic, Gastrointestinal, Genitourinary, Musculoskeletal, Integumentary, Endocrine and Eyes/Ears/Nose/Throat Exam Surgical H&P Exam: Normal: HEENT, Normal: Heart, Normal: Lungs, Normal: Extremities, Normal: Abdomen, Normal: Skin and Normal: Neurological Plan Diagnosis/Plan: Unchanged I have reviewed the history and physical and performed a pertinent physical examination on my patient. No changes have occurred unless specified. Time Spent With Patient Time: Total time managing care of this patient today ____ minutes.
[2023-11-29 08:15] VITALS: BP 121/62; PULSE 62; RESP 15; TEMP 36.3; O2SAT 98
[2023-11-29 08:30] VITALS: BP 158/82; PULSE 60; RESP 15; O2SAT 100
--- NOTE | 2023-11-29 08:44 | OP_ITS ---
DATE OF SERVICE: 11/29/2023 SURGEON: Toney Lawrence MD INDICATIONS: Colon cancer screening. PREOPERATIVE DIAGNOSIS: POSTOPERATIVE DIAGNOSIS: PROCEDURE PERFORMED: Colonoscopy to the terminal ileum. ESTIMATED BLOOD LOSS: COMPLICATIONS: ANESTHESIA: Monitored anesthesia care. ASSISTANTS: SPECIMENS: DESCRIPTION OF PROCEDURE: A history and physical was performed. The risks and benefits of the procedure were explained to the patient and informed consent was obtained. The patient was placed in the left lateral decubitus position. A digital rectal exam was performed and was found to be normal. The Olympus pediatric video colonoscope was introduced into the rectum and advanced to the cecum. The cecum was identified by transillumination, palpation, and identification of ileocecal valve. Examination was performed. The scope was removed. She tolerated the procedure well and was returned to the recovery area in stable condition. FINDINGS: The terminal ileum was examined and appeared normal. The visualized colonic mucosa was normal. The quality of prep was good. No polyps were identified. There was moderate diverticulosis involving the sigmoid and diverticulosis scattered throughout the remainder of the colon. Retroflexed examination was normal. IMPRESSION: Normal colonoscopy. RECOMMENDATIONS: 1. Follow up as needed. 2. Repeat colonoscopy could be considered in 5 years based on her family history, however, this is optional based on her age. MD ALVINO Kilgore/GEETHA / [id number]
[2023-11-29 08:45] VITALS: BP 162/83; PULSE 57; RESP 16; TEMP 36.4; O2SAT 100
== END 2023-11-29 09:13 | disposition home or self-care (01) ==
PROVIDERS: PCP Internal Medicine; Visit Provider Internal Medicine Gastroenterology
PROC: 0DJD8ZZ Inspection of Lower Intestinal Tract, Via Natural or Artificial Opening Endoscopic (ICD-10-PCS; CPT 45378; principal; 2023-11-29 07:30)
DX: Z12.11 Encounter for screening for malignant neoplasm of colon (principal); Z86.010 Personal history of colon polyps; Z80.0 Family history of malignant neoplasm of digestive organs; K21.9 Gastro-esophageal reflux disease without esophagitis; I10 Essential (primary) hypertension; E78.5 Hyperlipidemia, unspecified; M81.0 Age-related osteoporosis without current pathological fracture; Z85.43 Personal history of malignant neoplasm of ovary; Z90.710 Acquired absence of both cervix and uterus; Z98.51 Tubal ligation status; Z79.899 Other long term (current) drug therapy; Z88.8 Allergy status to other drugs, medicaments and biological substances; Z87.891 Personal history of nicotine dependence; K57.30 Diverticulosis of large intestine without perforation or abscess without bleeding
CPT/HCPCS: G0105; J2704

== ENCOUNTER 2024-05-18 11:06 | Outpatient (AMB) | payer MEDICARE, SELFPAY ==
--- NOTE | 2024-05-18 11:19 | A.OFFPC_ITS ---
Vital Signs 05/18/24 11:20 Height 4 ft 11 in Weight 115 lb 6 oz BMI 23.3 BP 154/92 H Blood Pressure Location Lt brachial Position Sitting Pulse 76 Pulse Source Pulse Oximeter Pulse Oximetry (%) 97 Oxygen Delivery Method Room Air Intake Visit Reasons: physical Allergies atorvastatin [From Lipitor] Adverse Reaction (Unknown, Verified 05/18/24 11:22) Unknown ezetimibe [From Zetia] Adverse Reaction (Unknown, Verified 05/18/24 11:22) Unknown pravastatin Adverse Reaction (Unknown, Verified 05/18/24 11:22) Unknown Medication List - Last Reconciled 05/18/24 by Castillo Zambrano MD azelaic acid 15% (Finacea) apply thinly face topically 2 times a day; 90 days calcium carbonate-vitamin D3 500 mg-10 mcg (400 unit) (Calcium 500 + D) 1 tab PO DAILY cholecalciferol (vitamin D3) (Vitamin D3) 25 mcg PO DAILY hydrochlorothiazide 12.5 mg PO DAILY omeprazole 20 mg PO DAILY raloxifene 60 mg PO DAILY simvastatin 20 mg PO BEDTIME Tobacco use date assessed: 05/18/24 Fall risk assessment: No Falls in past year Last assessed Fall Risk: 05/18/24 Dental Screening Dental Screen Date: 05/18/24 Did you have a dental visit in the last 12 months?: Yes Did you have a dental problem in the last 6 months where you did not have access to dental care?: No Was dental information given to patient?: Patient has dentist HPI physical HPI Details The patient is a 78-year-old female presenting for an annual wellness visit. She has a history of essential hypertension, currently managed with hydrochlorothiazide 12.5 mg daily. Her blood pressure readings at home have typically been between 132/135 mmHg, slightly above the guideline target of 130/80 mmHg. The patient also has hyperlipidemia and a history of poor tolerance to previous cholesterol medications, including atorvastatin and pravastatin. She is currently taking simvastatin 20 mg daily with a favorable lipid profile, her low-density lipoprotein cholesterol level being 116 mg/dL. For osteopenia, she was last evaluated in May 2022, and her bone density is due for reassessment. She is currently on raloxifene for bone health, particularly due to her past breast cancer treatment, which has affected her bone density. Her GERD is managed with omeprazole 20 mg, now reduced to every other day due to well-controlled symptoms, likely as a strategy to reduce potential stress on renal function. The patient reports generally good health, no recent changes in vision since her last examination in September, and no history of alcohol, smoking, or recreational drug use except for two drinks over the [place] holidays. Her fluid intake has been low, with attempts to supplement with iced tea. Her bowel movements are normal, and she reports no other symptoms such as dizziness, nausea, chest pain, or breathing difficulties. She has a history of pneumonia and is not interested in shingles vaccination but has received her pneumonia vaccine. - Blood pressure management: Consistentl y monitor at home. - Lipid control: Continue current simvas tatin dosage; LDL recent results within target range. - Bone density scan due for reassessment due to osteopenia; previous scan in May 2022. - GERD management: Omeprazole adjusted t o every other day; symptoms well- controlled. - Mammography: Up to date. - Pneumonia vaccination: Completed. - No interest in shingles vaccination. - Encouragement to increase fluid intake to aid renal function. - Dietary advice: Emphasized healthy eat ing and staying active to maintain health. - Occupation and Work: No current employ ment discussed. - [facility]: [facility], no gardening allowed. - Substance Use: No smoking or drug use; minimal alcohol intake, only during holidays. - Exercise: Not discussed in conversatio n. - Nutrition: Inadequate water intake, at tempts to compensate with iced tea. - General: Denies dizziness, syncope, na usea or vomiting, fever. - Cardiovascular: Denies chest pain or d iscomfort. - Respiratory: Denies dyspnea. - Gastrointestinal: Reports GERD managed with omeprazole. - Urogenital: Denies issues; urination o nce nightly. - Neurological: Denies headaches, seizur es. - Musculoskeletal: No joint pain or stif fness. - Labs: Complete blood count normal; no anemia observed. - Lipids: LDL cholesterol 116 mg/dL. - Renal function: Normal. - Liver function: Within normal limits. - Blood glucose: Normal. - Vitamin Levels: B12 and Vitamin D with in normal ranges. - Previous colonoscopy: Normal results. [facility] Medical History (Updated 05/18/24 @ 11:47 by Castillo Zambrano MD) Elevated blood pressure reading Osteoporosis Tubular adenoma of colon Anxiety GERD (gastroesophageal reflux disease) Ovarian cancer in remission Pure hypercholesterolemia Surgical History H/O colonoscopy History of tonsillectomy History of tubal ligation History of appendectomy History of total abdominal hysterectomy and bilateral salpingo-oophorectomy Family History Father Colon cancer, Onset Age: 63 Mother Hypertension Social History (Updated 05/18/24 @ 11:51 by Castillo Zambrano MD) [facility] Alcohol intake: current Comment: 2 drinks [place] Patient Tobacco Use Status: Former Tobacco user Tobacco use type: Cigarette e-Cigarette/Vaping Use: Never Used Second Hand Smoke Exposure: No service: No Current occupational status: retired Cognitive needs: No Hearing needs: No Vision needs: Yes Questionnaire PHQ-9 Over the last 2 weeks, how often have you been bothered by any of the following problems? 1. Little interest or pleasure in doing things: not at all 2. Feeling down, depressed, or hopeless: not at all 3. Trouble falling or staying asleep, or sleeping too much: not at all 4. Feeling tired or having little energy: not at all 5. Poor appetite or overeating: not at all 6. Feeling bad about yourself - or that you are a failure or have let yourself or your family down: not at all 7. Trouble concentrating on things, such as reading the newspaper or watching television: not at all 8. Moving or speaking so slowly that other people could have noticed. Or the opposite - being so fidgety or restless that you have been moving around a lot more than usual: not at all 9. Thoughts that you would be better off or of hurting yourself in some way: not at all Total score: 0 Depression Screening Interpretation: Negative Depression Screening Done: Yes [id number] - PHQ-9 Billing: Yes Source: Developed by Drs. Jenaro Casanova, Florence Pringle, Ramírez Young and colleagues, with an educational kary from [employer]. Thrive Questionnaire Date Thrive assessed: 05/18/24 I am a: Patient What is your living situation today?: I have a steady place to live Within the past 12 months, did the food you bought not last and you didn't have the money to get more?: Never true Within the past 12 months, did you worry whether your food would run out before you got money to buy more?: Never true Do you have trouble paying for medicines?: No Do you have trouble getting transportation to medical appointments?: No Do you have trouble paying your heating and electricity bill?: No Do you have trouble taking care of your child, family member or friend?: No Do you have trouble with day-to-day activities such as bathing, preparing meals, shopping, managing finances, etc.?: No Are you currently unemployed and looking for a job?: No Are you interested in more education?: No Please select the resources that you would like help with: None Currently or been in a relationship where the following occur: No concerns reported THRIVE Score: 0 AUDIT C Alcohol Use Questionnaire (AUDIT-C) 1. How often do you have a drink containing alcohol?: Monthly or less 2. How many drinks containing alcohol do you have on a typical day when you are drinking?: 1 or 2 3. How often do you have six or more drinks on one occasion?: Never Total Score: 1 PILY-7 AMB Questionnaire PILY-7 Date PILY - 7 assessed: 05/18/24 Feeling nervous, anxious, or on edge: 1 = Several days Not being able to stop or control worryin = Not at all Worrying too much about different things: 1 = Several days Trouble relaxin = Not at all Being so restless that it is hard to sit still: 0 = Not at all Becoming easily annoyed or irritable: 0 = Not at all Feeling afraid as if something awful might happen: 0 = Not at all Total PILY-7 score (0-4 normal; 5-9 mild; 10-14 moderate; 15-21 severe): 2 Source: Developed by Drs. Jenaro Casanova, Florence Pringle, Ramírez Young and colleagues, with an educational kary from [employer]. PILY-7 Assessment Billing PILY-7 Assessment Tool: PILY-7 Assessment 56889 Review of Systems Const Denies poor appetite and Denies weakness Eyes Denies no additional complaints ENT Reports Normal hearing present, Denies dizziness, Denies nasal congestion, Denies tinnitus and Denies sore throat Card Denies chest pain, Denies syncope, Denies rapid heart rate and Denies dyspnea Resp Denies cough and Denies dyspnea GI Denies change in stool character, Reports constipation, Denies diarrhea, Denies nausea and Denies vomiting Denies urinary frequency, Denies difficulty voiding and Denies dysuria Neuro Reports Normal hearing present, Denies confusion, Denies dizziness, Denies syncope and Denies weakness Psych Denies confusion Physical exam (Primary Care) Vital Signs: Last Vital Signs Pulse 76 05/18/24 11:20 BP 154/92 H 05/18/24 11:20 Pulse Ox 97 05/18/24 11:20 Oxygen Delivery Method Room Air 05/18/24 11:20 BMI result Body Mass Index 23.3 Tobacco/Smoking Status: Tobacco use Status Tobacco use date assessed 05/18/24 05/18/24 11:23 Patient Tobacco Use Status Former Tobacco user 05/18/24 11:23 Tobacco use type Cigarette 05/18/24 11:23 e-Cigarette/Vaping Use Never Used 05/18/24 11:23 PHQ-9: PHQ-9 Score PHQ-9: Total score 0 05/18/24 11:23 Depression Screening Interpretation: Negative Thrive Assessment: Date of Thrive Assessment Date Thrive assessed 05/18/24 05/18/24 11:23 Currently or been in a relationship where the following occur: No concerns reported Const General: No confusion Orientation/consciousness: No confusion HENMT Head: Yes normocephalic Ears: external ears normal and TM's normal bilaterally Face and sinus: Yes normal facial exam Mouth: moist mucous membranes Throat: Yes tonsils normal Eyes Conjunctivae: conjunctivae normal Pupils: Equal, round and reactive pupils present and Pupil accommodation reflex normal Direct Ophthalmoscopy: normal light reflex Neck Neck: No lymphadenopathy Thyroid: Thyroid normal Chest Chest palpation & inspection: normal inspection of the chest Resp Effort & Inspection: normal respiratory effort and no audible wheezes Auscultation: clear to auscultation bilaterally, no crackles, no wheezes and lung sounds not diminished Cardio Rate: regular rate Rhythm: regular rhythm Peripheral pulses: radial pulses present and dorsalis pedis present GI Palpation (GI): no masses Auscultation: normal bowel sounds and normoactive bowel sounds Rectal Exam - Female: deferred Skin General skin exam: no rashes or lesions noted Rashes: no rashes Neuro General: No confusion Cranial nerves: Yes Equal, round and reactive pupils present and Yes Normal hearing present Cognition (Neuro): normal cognition Gait exam (Neuro): Normal gait present Motor exam (neuro): 5/5 motor strength present throughout Deep tendon reflexes (DTR's): Right brachioradialis reflex intensity grade: 2+, Left brachioradialis reflex intensity grade: 2+, Right patellar reflex intensity grade: 2+ and Left patellar reflex intensity grade: 2+ Extrem General: No edema Coding Level of Care Code Est Pt Prev Care >65y(67706) Diagnoses Annual physical exam Z00.00 Hypertension I10 Pure hypercholesterolemia E78.00 Age-related osteoporosis without current pathological fracture M81.0 Osteoporosis type: age-related Presence of current pathological fracture: without current pathological fracture GERD (gastroesophageal reflux disease) K21.9 Generalized anxiety disorder F41.1 Additional Codes PILY-7 Assessment Billing - PILY-7 Assessment Tool: PILY-7 Assessment 88956 ([id number]) PHQ-9 - 28206 - PHQ-9 Billing: Yes ([id number]) Assessment & Plan Assessment & Plan (1) Annual physical exam: Code(s): Z00.00 - Encounter for general adult medical examination without abnormal findings Category: Medical (2) Hypertension: Code(s): I10 - Essential (primary) hypertension Category: Medical (3) Pure hypercholesterolemia: Code(s): E78.00 - Pure hypercholesterolemia, unspecified Category: Medical (4) Osteoporosis: Code(s): M81.0 - Age-related osteoporosis without current pathological fracture Category: Medical Qualifiers: Osteoporosis type: age-related Presence of current pathological fracture: without current pathological fracture Qualified Code(s): M81.0 - Age- related osteoporosis without current pathological fracture (5) GERD (gastroesophageal reflux disease): Code(s): K21.9 - Gastro-esophageal reflux disease without esophagitis Category: Medical (6) Generalized anxiety disorder: Code(s): F41.1 - Generalized anxiety disorder Category: Medical Plan - Monitor and aim to maintain blood pressure below 130/80 mmHg with current medication. - Continue simvastatin for lipid control, maintain LDL cholesterol under 130 mg/dL. - Schedule and complete a bone density evaluation as it is due. - Maintain current GERD management; ensure renal function remains stable. - Reinforce good hydration practices, aiming for at least three glasses of water daily. - Continue to stay active and maintain a balanced diet. - Schedule follow-up visual exams due for September. - Strongly advise considering flu vaccination during the current season amidst higher respiratory disease exposure. - Continue monitoring for any adverse effects or new symptoms. During the visit, I emphasized the importance of managing hypertension and lipid levels to prevent cardiovascular complications, reassuring that her LDL cholesterol is well-controlled with current therapy. I discussed the necessity for her upcoming bone density evaluation due to osteopenia, particularly because of her past breast cancer treatment, and assured her that current management lines are appropriate. We reviewed her healthy lifestyle, especially focusing on improving hydration, which may aid renal health. I addressed her GERD management and recommended continuing the current regimen, discussing the benefits of reducing the dosing frequency of omeprazole owing to satisfactory symptom control. We discussed vaccination options but acknowledged her current stance on the shingles vaccine. I advised on the heightened importance of flu vaccination during this season. Finally, I provided reassurance that ongoing health screening measures and medications are adequate, encouraging active involvement in her health maintenance. We agreed that communication should remain open for any concerns or additional symptoms that may arise. - Monitor your blood pressure regularly at home. - Continue with your current medications as prescribed. - Increase daily water and iced tea intake aiming for three glasses per day. - Schedule a bone density screening to reassess osteopenia. - Maintain balanced diet and regular light physical activity. - Consider receiving a flu shot this season. - Communicate any new symptoms or changes in your condition immediately. Orders: Orders Free T4 (Free Thyroxine) 3 Months E78.00 - Pure hypercholesterolemia, unspecified Thyroid Stimulating Hormone 3 Months E78.00 - Pure hypercholesterolemia, unspecified Lipid Panel 3 Months E78.00 - Pure hypercholesterolemia, unspecified Vitamin D 25-OH Total 3 Months E78.00 - Pure hypercholesterolemia, unspecified XR DEXA axial skeleton Today M81.0 - Age-related osteoporosis without current pathological fracture Complete Blood Count Auto Diff 3 Months E78.00 - Pure hypercholesterolemia, unspecified Comprehensive Met. Panel 3 Months E78.00 - Pure hypercholesterolemia, unspecified Vitamin B12 and Folate 3 Months E78.00 - Pure hypercholesterolemia, unspecified
[2024-05-18 11:20] VITALS: BP 154/92; PULSE 76; O2SAT 97; BMI 23.3
--- OUTSIDE RECORDS SUMMARY | 2024-05-18 12:57 | XMS_ITS | Patient Health Record ---
Author Organization [facility] Address [address] [place] [address] Care Team Providers Care Necktie Stitcher Name Role Phone Castillo Zambrano MD Primary Care Provider Toney Cruz Jr Unavailable ALLERGIES Allergen (clinical drug ingredient) Drug/Non Drug Allergy documented on EMR Reaction Allergy Type Onset Date Status atorvastatin Lipitor Unknown Drug Allergy Acti ve rosuvastatin Crestor Unknown Drug Allergy Acti ve REASON FOR REFERRAL No Information MEDICATIONS Medication SIG (Take, Route, Frequency, Duration) Notes Start Date End Date Status Raloxifene HCl 60 MG 1 tablet Orally Onc e a day Active Omeprazole 20 MG 1 capsule Orally sindy ry morning for 90 days 05/11/2011 Active Calcium + D 500-1000-40 MG-UNT-MCG Orally Once a day Active Vitamin D 1000 UNIT 1 capsule Orally Onc e a day Active Simvastatin 20 MG 1 tablet in the evening Orally Once a day Active hydroCHLOROthiazide 12.5 MG 1 capsule in the morning Orally Once a day for 30 day(s) Active Finacea 15 % 1 application to affected area Externally Twice a day Active IMMUNIZATIONS Vaccine Route Administration Date Status Comme nts Influenza Unknown 10/24/2023 Refused SOCIAL HISTORY Sex Assigned At : Social History Observation Description Sex Assigned At Unknown PROBLEMS Problem Type ICD Code Onset Dates Problem Status W/U Status Risk SNOMED Code Notes Problem Colon cancer screening (Z12.11) Active confirmed 321497648 Problem Gastroesophageal reflux disease without esophagitis (K21.9) Active confirmed 021973546 Problem Fatty liver (K76.0) Active confirmed 19 [id number] 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 (Z79.899) Active confirmed [id number] VITAL SIGNS Temperature 97.3 degrees Fahrenheit 10/24/2023 Blood pressure diastolic 00 mm Hg 10/24/2023 Height 59.25 in 10/24/2023 Blood pressure systolic 000 mm Hg 10/24/2023 Weight 111 lbs 10/24/2023 BMI 22.23 kg/m2 10/24/2023 Encounters Encounter Location Date Provider Diagnosis [facility] [address] [place], [place] [id number] 11/29/2023 oTney Lawrence Jr Encounter for screening colonoscopy Z12.11 [facility] [address] [place] [address] 10/24/2023 Toney Lawrence Jr Colon cancer screening Z12.11 [facility] current use of diuretic Z79.899 ASSESSMENTS Encounter Date Diagnosis Assessment Notes Treatment Notes Treatment Clinical Notes 11/29/2023 Encounter for screening colonoscopy (ICD-10 - Z12.11) 10/24/2023 Colon cancer screening (ICD-10 - Z12.11) Colonoscopy material was printed,Colonoscop y material was printed 10/24/2023 [facility]iary current use of diuretic (ICD-10 - Z79.899) PLAN OF TREATMENT Future Test Test Name Order Date COLONOSCOPY 01/19/2018 COLONOSCOPY 10/24/2023 Insurance Providers Payer Name Payer Address Payer Phone Subscriber Number Group Number Insured Name Patient Relationship to Insured Coverage Start Date Coverage End Date MEDICARE OF [place] [address] [place] [id number] GAVINO COX Self - patient is the insured [employer] ATT[employer] CLAIMS [address] [place] [address] [id number] GAVINO COX Self - patient is the insured MEDICAL (GENERAL) HISTORY Medical History History ICD Code Colonoscopy 05/02, normal, f zion-year followup due to family history and personal history Hypertension Osteoporosis Hyperlipidemia Gastroesophageal reflux disease Surgical History Surgery Date(Month/Year) hysterectomy for ovarian cancer 1998 tubal ligation tonsillectomy [facility]
--- OUTSIDE RECORDS SUMMARY | 2024-05-18 12:57 | XMS_ITS ---
Author Organization [facility] Address [address] [place] [address] Care Team Providers Care Bioinformatics Programmer Name Role Phone Po Castillo URENA Primary Care Provider Toney Cruz Jr Unavailable [phone] REASON FOR VISIT screening Encounters Encounter Location Date Provider Diagnosis [facility] [address] [place], [place] [id number] 11/29/2023 Toney Lawrence Jr Encounter for screening colonoscopy Z12.11 ASSESSMENTS Encounter Date Diagnosis Assessment Notes Treatment Notes Treatment Clinical Notes 11/29/2023 Encounter for screening colonoscopy (ICD-10 - Z12.11) PLAN OF TREATMENT No Information
--- OUTSIDE RECORDS SUMMARY | 2024-05-18 12:57 | XMS_ITS ---
Author Organization [facility] Address [address] [place] [address] Care Team Providers Care B2B Sales Professional Name Role Phone Po Castillo URENA Primary Care Provider Tiffany e Toney Lawrence Jr Unavailable ALLERGIES Allergen (clinical drug ingredient) Drug/Non Drug Allergy documented on EMR Reaction Allergy Type Onset Date Status atorvastatin Lipitor Unknown Drug Allergy Acti ve rosuvastatin Crestor Unknown Drug Allergy Acti ve REASON FOR VISIT Patient presents today for a COLON SCREENING MEDICATIONS Medication SIG (Take, Route, Frequency, Duration) Notes Start Date End Date Status Raloxifene HCl 60 MG 1 tablet Orally Onc e a day Active Omeprazole 20 MG 1 capsule Orally sindy ry morning for 90 days 05/11/2011 Active Calcium + D 500-1000-40 MG-UNT-MCG Orally Once a day Active Finacea 15 % 1 application to affected area Externally Twice a day Active Vitamin D 1000 UNIT 1 capsule Orally Onc e a day Active Simvastatin 20 MG 1 tablet in the evening Orally Once a day Active hydroCHLOROthiazide 12.5 MG 1 capsule in the morning Orally Once a day for 30 day(s) Active IMMUNIZATIONS Vaccine Route Administration Date Status Comme nts Influenza Unknown 10/24/2023 Refused PROBLEMS Problem Type ICD Code Onset Dates Problem Status W/U Status Risk SNOMED Code Notes 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 of diuretic (Z79.899) Active confirmed [id number] VITAL SIGNS BMI 22.23 kg/m2 10/24/2023 Blood pressure systolic 000 mm Hg 10/24/19 24 Blood pressure diastolic 00 mm Hg 024 Height 59.25 in 10/24/2023 Temperature 97.3 degrees Fahrenheit 10/24/19 24 Weight 111 lbs 10/24/2023 Encounters Encounter Location Date Provider Diagnosis [facility] [address] [place] [address] 10/24/2023 Toney Lawrence Jr Colon cancer screening Z12.11 and intermediate frame tender current use of diuretic Z79.899 ASSESSMENTS Encounter Date Diagnosis Assessment Notes Treatment Notes Treatment Clinical Notes 10/24/2023 Colon cancer screening (ICD-10 - Z12.11) Colonoscopy material was printed,Colonoscopy material was printed 10/24/2023 alf current use of diuretic (ICD-10 - Z79.899) PLAN OF TREATMENT Treatment Notes Assessment Notes Colon cancer screening Colonoscopy mater ial was printed,Colonoscopy material was printed Future Test Test Name Order Date COLONOSCOPY 10/24/2023 Next Appt Details Follow Up: 1 Year, Reason: Progress Notes * Examination Category Sub-Category Detail Notes General Examination GENERAL APPEARANCE: in no ac fabio distress HEAD: normocephalic EYES: sclera non-icteric NECK/THYROID: no lymphadenopathy HEART: S1, S2 normal, no mu rmurs CHEST: normal shape and exp ansion LUNGS: clear to auscultatio n bilaterally ABDOMEN: soft, nontender, non distended, bowel sounds present, no organomegaly SKIN: anicteric EXTREMITIES: no clubbing, cyanosi s, or edema PSYCH: cognitive function i ntact ORAL CAVITY: mucosa moist
== END 2024-05-18 12:03 | disposition home or self-care (01) ==
PROVIDERS: PCP Internal Medicine; Visit Provider Internal Medicine
DX: I10 Essential (primary) hypertension (principal); E78.00 Pure hypercholesterolemia, unspecified; M81.0 Age-related osteoporosis without current pathological fracture; K21.9 Gastro-esophageal reflux disease without esophagitis; F41.1 Generalized anxiety disorder

== ENCOUNTER → 2024-05-18 11:06 | Outpatient (BNVA) | payer MEDICARE, SELFPAY | PROVIDERS: PCP Internal Medicine; Visit Provider Internal Medicine | DX: Z00.00 Encounter for general adult medical examination without abnormal findings (principal); I10 Essential (primary) hypertension; K21.9 Gastro-esophageal reflux disease without esophagitis; E78.00 Pure hypercholesterolemia, unspecified; M81.0 Age-related osteoporosis without current pathological fracture; F41.1 Generalized anxiety disorder | CPT/HCPCS: 96127; 99212 ==

== ENCOUNTER 2024-11-07 07:27 | Outpatient (REF) | payer MEDICARE, SELFPAY ==
--- NOTE | ~2024-11-07 | MM_ITS ---
EXAMINATION: MM SCREENING DIGITAL BREAST TOMOSYNTHESIS, BILATERAL CLINICAL INFORMATION: Screening. Asymptomatic. COMPARISON: Mammography: Comparison is made with available priors TECHNIQUE: Digital breast mammography with tomosynthesis is performed in both the craniocaudal and mediolateral oblique views along with computer-aided detection (CAD). FINDINGS: There are scattered areas of fibroglandular density (ACR BI-RADS breast composition Category b). There are no significant masses, abnormal calcifications, or other abnormalities. MM/MM tomosynthesis screening BI IMPRESSION: No mammographic evidence of malignancy. ASSESSMENT: BI-RADS BI-RADS 1 - Negative RECOMMENDATION: Routine annual mammography screening. 1 year F/U This examination should not preclude the clinical evaluation of a suspicious palpable abnormality. This patient's information was entered into a reminder system with a target due date for their next mammogram. Electronically signed by: Julisa Theodore DO 11/24/2024 02:57 PM EDT
--- NOTE | ~2024-11-07 | MM_ITS ---
EXAMINATION: DXA BONE DENSITY AXIAL HISTORY: M81.0 - Age-related osteoporosis without current pathological fracture TECHNIQUE: [employer] Dual energy absorptiometry (DEXA) of the lumbar spine, total left hip, and femoral neck was performed. COMPARISON: Comparison is made with the prior examination dated 06/01/2022. FINDINGS: The bone mineral density of the lumbar spine is 0.742, corresponding to a T-score of -3.6, and a Z-score of -1.4. This is indicative of osteoporosis. This represents a BMD change of 2.5% compared to the prior exam. This is not statistically significant. The bone mineral density of the left total hip is 0.702, corresponding to a T-score of -2.4, and a Z-score of -0.2. This is indicative of osteopenia. This represents a BMD change of 8.5% compared to the prior exam. This is statistically significant. The bone mineral density of the left femoral neck is 0.647, corresponding to a T-score of -2.8, and a Z-score of -0.5. This is indicative of osteoporosis. This represents a BMD change of 10.2% compared to the prior exam. MM/XR DEXA axial skeleton IMPRESSION: Based on bone mineral density, and according to World Health Organization (WHO) criteria, the diagnosis is consistent with osteoporosis. All bone density values are in grams per centimeter squared (g/cm2). Statistically, 68% of repeat scans fall within 1 SD (+/- 0.010 g/cm2 for AP spine L1-L4) and 1 SD (+/- 0.012 g/cm2 for femur total) FRAX is a trademark of the [employer]'s [place] for Metabolic Bone Disease, a World Health Organization (WHO) Collaborating Center. Electronically signed by: Jenaro Win MD 11/07/2024 08:48 AM EDT
--- OUTSIDE RECORDS SUMMARY | 2024-11-07 07:30 | XMS_ITS | Patient Health Record ---
Author Organization [facility] Address [address] [place] [address] Care Team Providers Care Foreign Languages Department Chair Name Role Phone Castillo Zambrano MD Primary Care Provider Toney Cruz Jr Unavailable [phone] Allergies Allergen (clinical drug ingredient) Drug/Non Drug Allergy documented on EMR Reaction Allergy Type Onset Date Status atorvastatin Lipitor Unknown Drug Allergy Acti ve rosuvastatin Crestor Unknown Drug Allergy Acti ve Reason For Referral No Information Medications Medication SIG (Take, Route, Frequency, Duration) Notes [...] affected area Externally Twice a day Active Immunizations Vaccine Route Administration Date Status Comme nts Influenza Unknown 10/24/2023 Refused Problems Problem Type SNOMED Code ICD Code Onset Dates Problem Status W/U Status Risk Notes Problem 933005916 Colon cancer screening (Z12.11) Active confirmed Problem 336525075 Gastroesophageal reflux disease without esophagitis (K21.9) Active confirmed Problem 022011580 Fatty liver (K76.0) Active confirmed Problem [id number] group home curr ent use of diuretic (Z79.899) Active confirmed Encounters Encounter Location Date Provider Diagnosis [facility] Outpatient [address] [place] [address] [id number] 11/29/2023 Toney Lawrence Jr Encounter for screening colonoscopy Z12.11 Assessments Encounter Date Diagnosis (ICD Code) Assessment Notes Treatment Notes Treatment Clinical Notes Section Notes 11/29/2023 Encounter for screening colonoscopy (ICD-10 - Z12.11) Plan Of Treatment Future Test Test Name Order Date COLONOSCOPY 01/19/2018 COLONOSCOPY 10/24/2023 Insurance Providers Payer Name Payer Address Payer Phone Subscriber Number Group Number Insured Name Patient Relationship to Insured Coverage Start Date Coverage End Date MEDICARE OF [place] [address] [place] [address] [id number] GAVINO COX Self - patient is the insured MEDEX ATTN CLAIMS [address] [place] [address] [id number] GAVINO COX Self - patient is the insured Medical (General) History Medical History History ICD Code Colonoscopy 05/02, normal, f zion-year followup due to family history and personal history Hypertension Osteoporosis Hyperlipidemia Gastroesophageal reflux disease Surgical History Surgery Date(Month/Year) hysterectomy for ovarian cancer 1998 tubal ligation tonsillectomy mary dickerson
== END 2024-11-07 07:28 | disposition home or self-care (01) ==
LOC: HO.MAMMO 07:27
PROVIDERS: PCP Internal Medicine; Visit Provider Internal Medicine
DX: Z12.31 Encounter for screening mammogram for malignant neoplasm of breast (principal); M81.0 Age-related osteoporosis without current pathological fracture
CPT/HCPCS: 77063; 77067; 77080

== ENCOUNTER → 2024-11-07 08:15 | Outpatient (BNV) | payer MEDICARE, SELFPAY | PROVIDERS: PCP Internal Medicine; Visit Provider Radiology Diagnostic Radiology | DX: E28.39 Other primary ovarian failure (principal) | CPT/HCPCS: 77080 ==

== ENCOUNTER 2024-11-13 06:28 | Outpatient (REF) | payer MEDICARE, SELFPAY ==
--- OUTSIDE RECORDS SUMMARY | 2024-11-13 06:30 | XMS_ITS | Patient Health Record ---
Author Organization [facility] Address [address] [place] [address] Care Team Providers Care Music Department Chair Name Role Phone Castillo Zambrano MD Primary Care Provider Toney Cruz Jr Unavailable [phone] Allergies Allergen (clinical drug ingredient) Drug/Non Drug [...] Problem Status W/U Status Risk Notes Problem 404614904 Colon cancer screening (Z12.11) Active confirmed Problem 600181889 Gastroesophageal reflux disease without esophagitis (K21.9) Active confirmed Problem 025847959 Fatty liver (K76.0) Active confirmed Problem [id number] 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 [address] [id number] GAVINO COX Self - patient is the insured MEDEX ATTN CLAIMS [address] [place] [address] [id number] GAVINO COX Self - patient is the insured Medical (General) History Medical History History ICD Code Colonoscopy 05/02, normal, f zion-year followup due to family history and personal history Hypertension Osteoporosis Hyperlipidemia Gastroesophageal reflux disease Surgical History Surgery Date(Month/Year) hysterectomy for ovarian cancer 1998 tubal ligation tonsillectomy mary dickerson
[2024-11-13 10:09] LABS: MANUAL DIFF FLAG NO
[2024-11-13 10:17] LABS: Hematocrit 44.4 % (37.0-47.0); Hemoglobin 14.8 g/dl (12.0-16.0); Imm Gran Abs Auto 0.02 X10*3/uL (0.00-0.03); Imm Gran Pct Auto 0.3 % (0.0-0.4); Lymphocytes Absolute Auto 1.9 X10*3/uL (1.2-4.9); Mean Corpuscular HGB Conc 33.3 g/dl (31.0-35.0); Mean Corpuscular Hemoglobin 32.2 pg (27.0-33.0); Mean Corpuscular Volume 96.5 fL (80.0-98.0); NRBC Abs Auto 0.000 X10*3/uL (0.0-0.012); NRBC Pct Auto 0.0 /100WBC (0.0-0.2); Platelet Count 305 X10*3/uL (160-400); Red Blood Count 4.60 X10*6/uL (4.20-5.50); White Blood Count 6.6 X10*3/uL (4.8-10.8)
[2024-11-13 10:49] LABS: Alanine Aminotransferase 21 U/L (0-31); Albumin Level 4.2 g/dL (3.5-5.0); Alkaline Phosphatase 73 U/L (39-117); Anion Gap 14 (12-20); Aspartate Amino Transferase 28 U/L (5-31); Blood Urea Nitrogen 19 mg/dL (9-16); Calcium 9.5 mg/dL (8.4-10.2); Carbon Dioxide 25 mmol/L (22-29); Chloride 105 mmol/L (96-108); Cholesterol 193 mg/dL (<200); Estimated Glomerular Filt Rate 49; HDL Cholesterol 56 mg/dL (>40); Potassium 3.8 mmol/L (3.3-5.1); Sodium 140 mmol/L (135-145); Total Protein 6.8 g/dL (6.5-8.0); Triglycerides 130 mg/dL (<150)
[2024-11-13 10:51] LABS: Free T4 (Free Thyroxine) 1.06 ng/dL (0.71-1.85); Thyroid Stimulating Hormone 1.71 uIU/mL (0.32-4.0)
[2024-11-13 11:14] LABS: Folate 8.5 ng/mL (> or = 4.0); Vitamin B12 523 pg/mL (200-900)
== END 2024-11-13 06:29 | disposition home or self-care (01) ==
LOC: HO.HMGCLDS 06:28
PROVIDERS: PCP Internal Medicine; Visit Provider Internal Medicine
DX: E78.00 Pure hypercholesterolemia, unspecified (principal)
CPT/HCPCS: 36415; 80053; 80061; 82306; 82607; 82746; 84439; 84443; 85025

== ENCOUNTER 2024-11-20 10:34 | Outpatient (AMB) | payer MEDICARE, SELFPAY ==
[2024-11-20 10:45] VITALS: BP 134/88; PULSE 73; RESP 18; TEMP 36.2; O2SAT 96; BMI 22.8
--- NOTE | 2024-11-20 10:45 | MHC.PC.OV ---
Vital Signs 11/20/24 10:45 Height 4 ft 11 in Weight 113 lb BMI 22.8 BP 134/88 Blood Pressure Location Lt brachial Position Sitting Respiration 18 Pulse 73 Pulse Source Pulse Oximeter Temp 97.1 F Temp Source Temporal Artery Scan Pulse Oximetry (%) 96 Oxygen Delivery Method Room Air Intake Visit Reasons: Hypertension Allergies atorvastatin (From Lipitor) Adverse Reaction (Unknown, Verified 11/20/24 11:01) Unknown ezetimibe (From Zetia) Adverse Reaction (Unknown, Verified 11/20/24 11:01) Unknown pravastatin Adverse Reaction (Unknown, Verified 11/20/24 11:01) Unknown Medication List - Last Reconciled 11/20/24 by Gloria Iyer PA-C azelaic acid 15% (Finacea) apply thinly face topically 2 times a day; 90 days calcium carbonate-vitamin D3 500 mg-10 mcg (400 unit) (Calcium 500 + D) 1 tab PO DAILY cholecalciferol (vitamin D3) (Vitamin D3) 25 mcg PO DAILY hydrochlorothiazide 12.5 mg PO DAILY omeprazole 20 mg PO DAILY raloxifene 60 mg PO DAILY simvastatin 20 mg PO BEDTIME Tobacco use date assessed: 05/18/24 Fall risk assessment: No Falls in past year Last assessed Fall Risk: 05/18/24 Dental Screening Dental Screen Date: 05/18/24 Did you have a dental visit in the last 12 months?: Yes Did you have a dental problem in the last 6 months where you did not have access to dental care?: No Was dental information given to patient?: Patient has dentist HPI Hypertension HPI Details 79-year-old female with past medical history of generalized anxiety disorder, hypercholesterolemia, osteoporosis, history of ovarian cancer, GERD, hypertension last seen 05/2024 by coming in for follow up. Presenting with hypertension management and knee pain. Blood pressure readings at home are generally within the 120s, with occasional lower readings. In-office readings are higher, likely due to anxiety. GERD is Managed with omeprazole every other day and dietary modifications. Symptoms are well-controlled with occasional use of Pepto-Bismol for heartburn. Right knee pain started three months ago, worsening over time. Pain radiates up the thigh, with occasional buckling. Managed with Advil and topical Voltaren Gel. [facility] Medical History Elevated blood pressure reading Osteoporosis Tubular adenoma of colon Anxiety GERD (gastroesophageal reflux disease) Ovarian cancer in remission Pure hypercholesterolemia Surgical History H/O colonoscopy History of tonsillectomy History of tubal ligation History of appendectomy History of total abdominal hysterectomy and bilateral salpingo-oophorectomy Family History Father Colon cancer, Onset Age: 63 Mother Hypertension Social History [facility] Alcohol intake: current Comment: 2 drinks Calvin Patient Tobacco Use Status: Former Tobacco user Tobacco use type: Cigarette e-Cigarette/Vaping Use: Never Used Second Hand Smoke Exposure: No service: No Current occupational status: retired Cognitive needs: No Hearing needs: No Vision needs: Yes Questionnaire PHQ-9 Over the last 2 weeks, how often have you been bothered by any of the following problems? 1. Little interest or pleasure in doing things: not at all 2. Feeling down, depressed, or hopeless: not at all 3. Trouble falling or staying asleep, or sleeping too much: not at all 4. Feeling tired or having little energy: not at all 5. Poor appetite or overeating: not at all 6. Feeling bad about yourself - or that you are a failure or have let yourself or your family down: not at all 7. Trouble concentrating on things, such as reading the newspaper or watching television: not at all 8. Moving or speaking so slowly that other people could have noticed. Or the opposite - being so fidgety or restless that you have been moving around a lot more than usual: not at all 9. Thoughts that you would be better off or of hurting yourself in some way: not at all Total score: 0 Source: Developed by Drs. Jenaro Casanova, Florence Pringle, Ramírez Young and colleagues, with an educational kary from [employer]. Thrive Questionnaire Date Thrive assessed: 11/13/24 I am a: Patient What is your living situation today?: I have a steady place to live Within the past 12 months, did the food you bought not last and you didn't have the money to get more?: Never true Within the past 12 months, did you worry whether your food would run out before you got money to buy more?: Never true Do you have trouble paying for medicines?: No Do you have trouble getting transportation to medical appointments?: No Do you have trouble paying your heating and electricity bill?: No Do you have trouble taking care of your child, family member or friend?: No Do you have trouble with day-to-day activities such as bathing, preparing meals, shopping, managing finances, etc.?: No Are you currently unemployed and looking for a job?: No Are you interested in more education?: No Please select the resources that you would like help with: None Currently or been in a relationship where the following occur: No concerns reported THRIVE Score: 0 AUDIT C Alcohol Use Questionnaire (AUDIT-C) 1. How often do you have a drink containing alcohol?: Monthly or less 2. How many drinks containing alcohol do you have on a typical day when you are drinking?: 1 or 2 3. How often do you have six or more drinks on one occasion?: Never Total Score: 1 PILY-7 AMB Questionnaire PILY-7 Date PILY - 7 assessed: 05/18/24 Feeling nervous, anxious, or on edge: 0 = Not at all Not being able to stop or control worryin = Not at all Worrying too much about different things: 0 = Not at all Trouble relaxin = Not at all Being so restless that it is hard to sit still: 0 = Not at all Becoming easily annoyed or irritable: 0 = Not at all Feeling afraid as if something awful might happen: 0 = Not at all Total PILY-7 score (0-4 normal; 5-9 mild; 10-14 moderate; 15-21 severe): 0 Source: Developed by Drs. Jenaro Casanova, Florence Pringle, Ramírez Young and colleagues, with an educational kary from [employer]. Review of Systems Const Denies body aches, Denies chills, Denies fever(s), Denies headache(s) and Denies poor appetite Eyes Reports no additional complaints ENT Denies dizziness and Denies headache(s) Card Denies chest pain, Denies syncope, Denies lightheadedness and Denies dyspnea Resp Denies dyspnea GI Denies nausea and Denies vomiting Reports no additional complaints Musc Reports no additional complaints and Denies abnormal gait Skin/Breast Reports system reviewed and no additional complaints, except as documented Neuro Denies abnormal gait, Denies dizziness, Denies syncope and Denies headache(s) Psych Reports no additional complaints Physical exam (Primary Care) Vital Signs: Last Vital Signs Temp 97.1 F 11/20/24 10:45 Pulse 73 11/20/24 10:45 Resp 18 11/20/24 10:45 BP 134/88 11/20/24 10:45 Pulse Ox 96 11/20/24 10:45 Oxygen Delivery Method Room Air 11/20/24 10:45 BMI result Body Mass Index 22.8 Tobacco/Smoking Status: Tobacco use Status Tobacco use date assessed 05/18/24 11/20/24 10:49 Patient Tobacco Use Status Former Tobacco user 11/20/24 10:49 Tobacco use type Cigarette 11/20/24 10:49 e-Cigarette/Vaping Use Never Used 11/20/24 10:49 PHQ-9: PHQ-9 Score PHQ-9: Total score 0 11/20/24 10:49 Thrive Assessment: Date of Thrive Assessment Date Thrive assessed 11/13/24 11/20/24 10:49 Currently or been in a relationship where the following occur: No concerns reported Const General: cooperative, healthy appearing, comfortable and no acute distress Orientation/consciousness: patient oriented x3 HENNH Head: Yes normocephalic Ears: hearing grossly normal bilaterally General nose exam: Normal external nose present Eyes General: appearance normal, both eyes and all related structures Conjunctivae: conjunctivae normal Neck Neck: Yes full ROM and Yes no lymphadenopathy Resp Effort & Inspection: normal respiratory effort Auscultation: clear to auscultation bilaterally, no crackles, no rales, no rhonchi and no wheezes Cardio Rate: regular rate Rhythm: regular rhythm Skin General skin exam: no rashes or lesions noted Neuro General: patient oriented x3 Gait exam (Neuro): Normal gait present Extrem Other: Intact strength and sensation in bilateral lower extremities. Mild crepitus in bilateral knees. No tenderness to palpation over bilateral knees General: Yes normal to inspection, Yes full ROM and No edema Psych Affect: normal affect Attitude: cooperative Insight: Good insight present (Psych) Judgement: Good judgement present (Psych) Coding Level of Care Code Corrine Pt Level 3 (88884) Diagnoses Primary hypertension I10 Hypertension type: primary hypertension Pure hypercholesterolemia E78.00 GERD (gastroesophageal reflux disease) K21.9 Right knee pain M25.561 Assessment & Plan Assessment & Plan (1) Hypertension: Code(s): I10 - Essential (primary) hypertension Category: Medical Qualifiers: Hypertension type: primary hypertension Qualified Code(s): I10 - Essential (primary) hypertension Plan: Continue on current blood pressure medication. Avoid salt intake and encourage healthy diet and regular exercise. Blood pressure goal less than 130/80. Blood pressure values at home has been within the normal range. They are elevated in the office and she states she does have known elevated blood pressures in the office due to anxiety. (2) Pure hypercholesterolemia: Code(s): E78.00 - Pure hypercholesterolemia, unspecified Category: Medical Plan: Avoid foods that are high in cholesterol such as red meat, fried foods, eggs and baked goods. Triglyceride goal of less than 150 and LDL goal of less than 130. Continue on simvastatin 20 (3) GERD (gastroesophageal reflux disease): Code(s): K21.9 - Gastro-esophageal reflux disease without esophagitis Category: Medical Plan: Avoid trigger foods such as citrus, tomato products, soda, caffeine, spicy foods and other foods that may be irritating to your stomach. Avoid laying flat 3-4 hours after eating and elevate the head of the bed 30 degrees to prevent acid from moving into the esophagus. Continue on omeprazole (4) Right knee pain: Code(s): M25.561 - Pain in right knee Category: Medical Plan: Patient complaining of right knee pain which has occurred in the past and has resolved spontaneously. The right knee pain began about 3 months ago and has been worsening during that time. She would like to try conservative measures including Voltaren gel, ibuprofen and Tylenol as needed and heating pads at this time. I did offer x-ray and physical therapy which was declined by the patient today. Follow up if needed Plan The patient's hypertension is being monitored with home blood pressure readings, which are generally within target range. In-office readings are higher, likely due to anxiety, but no immediate changes to medication are planned. The patient is advised to continue monitoring at home and report any significant changes. For GERD, the patient is managing symptoms with omeprazole every other day and dietary modifications. Occasional use of Pepto-Bismol is effective for heartburn. No changes to this regimen are necessary at this time. The right knee pain, likely due to osteoarthritis, is being managed with Advil and topical Voltaren Gel. The patient is advised to use heat therapy and consider physical therapy if symptoms persist. An x-ray may be considered to assess the severity of arthritis if the condition worsens. This note was constructed using voice recognition software. While every effort has been made to ensure accuracy and weight training instructor, still areas may have been included sometimes these areas may affect the content or meeting of the given symptoms. Total time spent caring for the patient today was 20 minutes. This includes time spent before the visit reviewing the chart, time spent during the visit, and time spent after the visit and documentation. Patient was informed and verbally consented to the use of an ambient scribe for clinic note documentation during this visit.
--- OUTSIDE RECORDS SUMMARY | 2024-11-20 11:34 | XMS_ITS | Patient Health Record ---
Author Organization [facility] Address [address] [place] [address] Care Team Providers Care Marketing Graphics Specialist Name Role Phone Castillo Zambrano MD Primary Care Provider Toney Cruz Jr Unavailable Allergies Allergen (clinical drug ingredient) Drug/Non Drug [...] Problem Status W/U Status Risk Notes Problem 598047614 Colon cancer screening (Z12.11) Active confirmed Problem 026742841 Gastroesophageal reflux disease without esophagitis (K21.9) Active confirmed Problem 597021162 Fatty liver (K76.0) Active confirmed Problem [id number] 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) Active confirmed Encounters Encounter Location Date Provider Diagnosis [facility] Outpatient [address] [place] [address] [id number] 11/29/2023 Toney Lawrence Jr Encounter for screening [...] Date MEDICARE OF [place] [address] [place] [address] [phone] [id number] GAVINO COX Self - patient is the insured MEDEX ATTN CLAIMS [address] [place] [address] [phone] [id number] GAVINO COX Self - patient is the insured Medical (General) History Medical History History ICD Code Colonoscopy 05/02, normal, f zion-year followup due to family history and personal history Hypertension Osteoporosis Hyperlipidemia Gastroesophageal reflux disease Surgical History Surgery Date(Month/Year) hysterectomy for ovarian cancer 1998 tubal ligation tonsillectomy mary dickerson
== END 2024-11-20 11:28 | disposition home or self-care (01) ==
LOC: HO.HMCH 10:37
PROVIDERS: PCP Internal Medicine
DX: I10 Essential (primary) hypertension (principal); E78.00 Pure hypercholesterolemia, unspecified; K21.9 Gastro-esophageal reflux disease without esophagitis; M25.561 Pain in right knee

== ENCOUNTER → 2024-11-20 10:34 | Outpatient (BNVA) | payer MEDICARE, SELFPAY | PROVIDERS: PCP Internal Medicine | DX: I10 Essential (primary) hypertension (principal); E78.00 Pure hypercholesterolemia, unspecified; K21.9 Gastro-esophageal reflux disease without esophagitis; M25.561 Pain in right knee | CPT/HCPCS: 99212 ==